=== PATIENT | male | born 1965 | race Caucasian/White ===

== ENCOUNTER 2020-06-13 00:42 | Outpatient (CLI) | payer BC, SELFPAY ==
[2020-06-13 18:24] LABS: SARS-CoV-2 RNA PCR Negative
== END 2020-06-13 00:43 | disposition home or self-care (01) ==
LOC: ANHCOVIDDT 00:42
PROVIDERS: Visit Provider Internal Medicine Critical Care Medicine
DX: Z01.812 Encounter for preprocedural laboratory examination (principal); Z20.828 Contact with and (suspected) exposure to other viral communicable diseases
CPT/HCPCS: 87635; C9803; U0003

== ENCOUNTER 2020-06-15 08:31 | Outpatient (CLI) | payer BC, SELFPAY ==
--- NOTE | 2020-07-07 23:23 | WPDSLEEPSTUD ---
Sleep Study Date of Study: 06/15/20 Ordering Provider: Nayeli Kruse MD Interpreting Physician: Nayeli Kruse MD Sleep Study Type: CPAP Titration Height: 1.7 m Weight: 90.718 kg Body Mass Index: 31.3 Neck Circumference: 40.64 cm Rock: 16 Reason for Sleep Study history of severe TRANG, has used CPAP in the past, wants to start using it again Sleep History Sherman Skaggs is a 54 year-old man who was diagnosed with obstructive sleep apnea 02/05/2011 with a split night study; AHI was 43.8 with minimum saturation of 84%. He was titrated to 15 cm water pressure. He says that he used CPAP for a while however began having cold-like symptoms year round, so he stopped using it. He now has poor quality sleep, and wants to return to using CPAP. he has excessive daytime sleepiness. He has difficulty waking in the morning. He constantly snores and occasionally it is loud enough that others complain about it. He rarely awakens at night with heartburn, belching or coughing. He occasionally awakens from sleep feeling short of breath. He frequently has trouble sleep with a cold. He rarely wakes up gasping for breath at night. He frequently has breathing problems at night observed by others. He rarely sweats excessively at night. He does not notice his heart pounding or beating irregularly at night. He occasionally falls asleep during the day, occasionally involuntarily, rarely while driving. He does not fall asleep during physical effort. He does not have loss of muscle tone was strong emotion. 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 He rarely feels paralyzed on waking or falling asleep. He occasionally has vivid dreamlike scenes upon awakening or falling asleep. He is not afraid to go to sleep. He denies having nightmares. He occasionally remembers his dreams. He frequently has racing thoughts. He rarely feels sad or depressed. He occasionally has anxiety. He occasionally has muscular tension. He rarely notices parts of his body jerking, rarely kicks at night. He occasionally has crawling and aching feelings in his legs and leg pain at night. He does not have morning jaw pain and does not grind his teeth during sleep. He frequently is bothered by pain during the day, is awakened by pain at night, wakes up feeling stiff in the morning with sore muscles and pain in the neck and spine. He has headaches, palpitations, bowel disturbances, dizziness, fatigue, memory problems and concentration difficulties. Normal bedtime is 12 midnight, falling asleep immediately. He wakes up a few times at night that he is aware of but does not stay awake long. When he awakens he may go to the bathroom. He wakes in the morning at 5:00 a.m.. On the weekends he goes to bed at 1:00 a.m. and wakes between 8 and 9:00 a.m. getting recovery sleep. He estimates an average of 5 hours of sleep at night. he takes naps in the afternoon. A short nap is not refreshing. He is usually drowsy in the morning for 3 hours or longer. Habits: He never smoked tobacco. Six caffeinated beverages a day. No alcohol or recreational drugs. FORMERLY [facility] Past Medical History Medical History (Updated 07/07/20 @ 23:34 by Nayeli Kruse MD) Depression Gastroesophageal reflux Hyperlipidemia TRANG (obstructive sleep apnea) Social History Social History (Updated 07/07/20 @ 23:35 by Nayeli Kruse MD) Smoking status: Never smoker Alcohol intake: never Substance use: never Medications Medications: Bupropion SR 150 mg t.i.d.- depression Voltaren 75 mg b.i.d. - carpal tunnel Pepcid b.i.d. Zocor 1 tablet daily gabapentin 1 b.i.d. for leg pain minocycline as needed for acne baby aspirin 81 mg a day multivitamin 1 daily zinc 1 tablet daily Sleep Procedure This test was performed using the [employer] multiple channel system including EOG, EEG, submental EMG, EKG, nasal and oral airflow using thermistors and nasal pressure
[2020-07-07 23:55] VITALS: BMI 31.3
== END 2020-06-15 08:32 | disposition home or self-care (01) ==
LOC: ANHCSM 08:31
PROVIDERS: Visit Provider Internal Medicine Critical Care Medicine
DX: G47.33 Obstructive sleep apnea (adult) (pediatric) (principal)
CPT/HCPCS: 95811

== ENCOUNTER 2020-07-05 13:06 | Outpatient (CLI) | payer OTHER, BC, SELFPAY ==
--- NOTE | ~2020-07-05 | MR_ITS ---
EXAMINATION: MR lumbar spine wo con DATE: 07/05/2020 13:40 INDICATION: Lumbar spinal stenosis. Lumbosacral radiculitis. TECHNIQUE: Magnetic resonance imaging (MRI) of the lumbar spine was performed without intravenous con trast. Sequences included sagittal T2-weighted FSE, sagittal T2-weighted FS FSE, sagittal T1-weighted FSE, and axial T2-weighted FSE. COMPARISON: Lumbar spine MRI 05/12/2016 FINDINGS: There is 15 degrees dextroscoliosis of lumbar spine. There is mild chronic anterior wedging of T12 and L1 vertebral bodies. There is a hemangioma in T12 vertebral body. There is moderately dec reased disc height at L1-L2 and severely decreased disc height from L2-L3 through L5-S1 with endplate remodeling. The distal spinal cord signal intensity is normal. The conus medullaris is at T12-L1. Th e following disc levels are specifically discussed: L1-L2: The disc is bulging. There is mild bilateral facet joint osteoarthritis. There is moderate carina ateral neural foraminal stenosis. There is mild central canal stenosis. L2-L3: The disc is bulging and has an annular fissure. There is moderate bilateral facet joint osteoa rthritis. There is moderate bilateral neural foraminal stenosis. There is mild central canal stenosis . L3-L4: The disc is bulging and has an annular fissure. There is mild right and severe left facet join t osteoarthritis. There is mild right and moderate left neural foraminal stenosis. There is mild cent ral canal stenosis. L4-L5: The disc is bulging and has an annular fissure. There is severe bilateral facet joint osteoart hritis. There is severe bilateral neural foraminal stenosis. There is severe central canal stenosis. L5-S1: The disc is bulging and has an annular fissure. There is moderate bilateral facet joint osteoa rthritis. There is moderate bilateral neural foraminal stenosis. There is mild central canal stenosis . IMPRESSION: 1. Severe lumbar spondylosis, worsened from 05/12/2016. 2. Lumbar dextroscoliosis. Reviewed, dictated and finalized at location B. 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
== END 2020-07-05 13:07 ==
DX: M47.27 Other spondylosis with radiculopathy, lumbosacral region (principal); M48.07 Spinal stenosis, lumbosacral region; M41.9 Scoliosis, unspecified
CPT/HCPCS: 72148

== ENCOUNTER → 2020-11-10 10:16 | Outpatient (CLI) | payer BC, SELFPAY ==
[2020-11-10 19:43] LABS: SARS-CoV-2 RNA PCR Negative
== END ==
PROVIDERS: Visit Provider Internal Medicine Gastroenterology
DX: Z01.812 Encounter for preprocedural laboratory examination (principal); Z20.822 Contact with and (suspected) exposure to COVID-19
CPT/HCPCS: C9803; U0003; U0005

== ENCOUNTER 2020-11-10 11:44 | Outpatient (CLI) | payer BC, SELFPAY ==
--- NOTE | ~2020-11-10 | XR_ITS ---
XR knee LT 3V DATE: 11/10/2020 12:18 INDICATION: Chronic left knee pain for 6 months TECHNIQUE: [place], AP, lateral views COMPARISON: 12/05/2015 left knee FINDINGS: There is prominent loss of medial compartment joint space. There is periarticular spurring at the patellofemoral joint. No fracture or dislocation, periosteal reaction or bone destruction. No radiopaque intra-articular lo ose body or chondrocalcinosis. IMPRESSION: Osteoarthritis at the patellofemoral and medial compartments Reviewed, dictated and finalized at location A.
== END 2020-11-10 11:45 | disposition home or self-care (01) ==
LOC: ANHIMG 11:51
PROVIDERS: PCP Family Medicine
DX: M25.562 Pain in left knee (principal); G89.29 Other chronic pain; M17.12 Unilateral primary osteoarthritis, left knee
CPT/HCPCS: 73562

== ENCOUNTER 2020-11-14 03:11 | Day surgery (SDC) | payer BC, SELFPAY ==
[2020-11-02 10:16] VITALS: BMI 31.4
[2020-11-14 06:29] VITALS: BP 132/75; PULSE 73; RESP 18; TEMP 36.6; O2SAT 98
[2020-11-14] MEDS: LACTATED RINGERS 1,000 ML 150 ML IV CONT (06:38)
--- NOTE | 2020-11-14 06:56 | PM.HPGS ---
History of Present Illness History of Present Illness Consent: Risks, benefits, and alternatives have been discussed and questions answered. Patient agrees to proceed with procedure. Chief complaint: neoplasm screening Narrative: Sherman Skagsg is a 55 year old male Here for colon cancer screening. Review of Systems Review of Systems: All systems reviewed & are unremarkable except as noted in HPI and below PMFSH Past Medical History Medical History Depression Gastroesophageal reflux Hyperlipidemia TRANG (obstructive sleep apnea) Social History Social History Smoking status: Never smoker Alcohol intake: never Substance use: never Living arrangements: with family Gender identity (if verbalized by the patient): Male Spiritual care concerns: No Meds Home Medications and Allergies Home Medications Medication Instructions Recorded Confirmed Type gabapentin 300 mg capsule 300 mg PO TID 08/15/20 11/02/20 History multivitamin 1 tablet PO DAILY 08/15/20 11/02/20 History aspirin 81 mg PO DAILY 11/02/20 11/02/20 History bupropion HCl 150 mg PO TID 11/02/20 11/02/20 History diclofenac sodium 75 mg PO BID 11/02/20 11/02/20 History famotidine 20 mg PO BID 11/02/20 11/02/20 History glucos sul [id number] 1 cap PO DAILY 11/02/20 11/02/20 History [Glucosamine Chondroitin] simvastatin 40 mg PO HS 11/02/20 11/02/20 History vitamin B complex [B 1 tablet PO DAILY 11/02/20 11/02/20 History Complex-Vitamin B12] Allergies Allergy/AdvReac Type Severity Reaction Status Date / Time No Known Allergies Allergy Verified 11/14/20 06:27 Vital Signs Vital Signs - 24 hr 11/14/20 06:29 Temperature 36.6 C Pulse Rate 73 Respiratory Rate 18 Blood Pressure 132/75 Pulse Oximetry 98 Exam Resp: Auscultation: clear to auscultation bilaterally Cardio: Rate: regular rate Rhythm: regular rhythm GI: GI Palp: Yes Soft to palpation and No Tenderness to palpation present (GI) Assessment and Plan Assessment and plan (1) Colon cancer screening: Code(s): Z12.11 - Encounter for screening for malignant neoplasm of colon Status: Acute Assessment and Plan: Colonoscopy with possible biopsy or polypectomy or cautery or injection of substances.
--- NOTE | 2020-11-14 07:12 | WPDANESEPPF ---
Anes - Initial Pre Proc Eval Procedure: Operation Date: 11/14/20 07:30 Proposed Procedures p Screening Colonoscopy - Aroldo Damon MD Date/Time: 11/14/20 07:12 Surgeon: Aroldo Damon MD Pre Op Diagnosis: neoplasm screening Patient Data Age: 55 Gender: M Height: 5 ft 7 in Weight: 94.2 kg Last Vital Signs Temp 97.8 F 11/14/20 06:29 Pulse 73 11/14/20 06:29 Resp 18 11/14/20 06:29 BP 132/75 11/14/20 06:29 Pulse Ox 98 11/14/20 06:29 Allergies Allergy/AdvReac Type Severity Reaction Status Date / Time No Known Allergies Allergy Verified 11/14/20 06:27 Home Medications Medication Instructions Recorded Confirmed Type gabapentin 300 mg capsule 300 mg PO TID 08/15/20 11/02/20 History multivitamin 1 tablet PO DAILY 08/15/20 11/02/20 History aspirin 81 mg PO DAILY 11/02/20 11/02/20 History bupropion HCl 150 mg PO TID 11/02/20 11/02/20 History diclofenac sodium 75 mg PO BID 11/02/20 11/02/20 History famotidine 20 mg PO BID 11/02/20 11/02/20 History glucos sul [id number] 1 cap PO DAILY 11/02/20 11/02/20 History [Glucosamine Chondroitin] simvastatin 40 mg PO HS 11/02/20 11/02/20 History vitamin B complex [B 1 tablet PO DAILY 11/02/20 11/02/20 History Complex-Vitamin B12] Patient hx anesthesia problems: none Family hx anesthesia problems: none PMFSH Past Medical History Medical History Depression Gastroesophageal reflux Hyperlipidemia TRANG (obstructive sleep apnea) Social History Social History Smoking status: Never smoker Alcohol intake: never Substance use: never Living arrangements: with family Gender identity (if verbalized by the patient): Male Spiritual care concerns: No Anes - Eval Final PreProcedure Day of Procedure 11/14/20 07:12 Patient weight: obese Heart: regular rate and rhythm Lungs: clear to auscultation Airway: Mallampati scale class II Neurological: alert and oriented Last oral intake: >/= 8 hours ASA classification: III Emergent: no Anesthetic plan: proceed Anesthesia type and monitoring: general GIVS and standard monitoring Informed Consent: The patient's anesthetic plan and its attendant risks and benefits were discussed with the patient/family/POA. Questions were solicited and answers provided to the satisfaction of the patient/family/POA.
[2020-11-14 07:46] VITALS: BP 94/57; PULSE 77; RESP 21; O2SAT 98
[2020-11-14 07:56] VITALS: BP 105/72; PULSE 74; RESP 20; O2SAT 100
[2020-11-14 08:06] VITALS: BP 98/65; PULSE 76; RESP 18; O2SAT 100
== END 2020-11-14 08:40 | disposition home or self-care (01) ==
PROVIDERS: Visit Provider Internal Medicine Gastroenterology
PROC: 0DJD8ZZ Inspection of Lower Intestinal Tract, Via Natural or Artificial Opening Endoscopic (ICD-10-PCS; CPT 45378; principal; 2020-11-14 07:30)
DX: Z12.11 Encounter for screening for malignant neoplasm of colon (principal); K64.8 Other hemorrhoids; K57.30 Diverticulosis of large intestine without perforation or abscess without bleeding; K21.9 Gastro-esophageal reflux disease without esophagitis; E78.5 Hyperlipidemia, unspecified; G47.33 Obstructive sleep apnea (adult) (pediatric); F32.9 Major depressive disorder, single episode, unspecified; Z79.82 Long term (current) use of aspirin; E66.9 Obesity, unspecified; Z68.32 Body mass index [BMI] 32.0-32.9, adult
CPT/HCPCS: 45378; C9803; J2704; J7120; U0003; U0005

== ENCOUNTER 2021-08-20 12:33 | Outpatient (CLI) | payer BC, SELFPAY ==
--- NOTE | ~2021-08-20 | MR_ITS ---
EXAMINATION: MR shoulder LT wo con DATE: 08/20/2021 13:29 INDICATION: Traumatic complete tear of left rotator cuff. TECHNIQUE: Magnetic resonance imaging (MRI) of the left shoulder was performed without intravenous co ntrast. Sequences included axial PD-weighted FS FSE, coronal oblique PD-weighted FS FSE and T2-weight ed FS FSE, and sagittal oblique T2-weighted FS FSE and T1-weighted FSE. COMPARISON: None. FINDINGS: Coracoacromial arch: The acromion undersurface is curved in morphology (type II). There is severe acromioclavicular joint osteoarthritis. There is mild subacromial/subdeltoid bursitis. Rotator cuff: There is severe supraspinatus tendinopathy. There is a full-thickness tear of supraspinatus tendon me asuring 10 mm anterior to posterior by 2 mm proximal to distal. There is mild infraspinatus tendinopa thy. Teres minor tendon is normal. There is severe subscapularis tendinopathy. There is no asymmetric fatty atrophy of the rotator cuff muscle bellies. Biceps tendon and glenoid labrum: There is a complete tear of proximal biceps tendon. There is a tear of superior labrum from 10:00 to 2:00 (SLAP tear). Fluid: There is a small glenohumeral joint effusion. Bones/cartilage: There is cartilage surface irregularity of humeral head and glenoid. IMPRESSION: 1. Severe rotator cuff tendinopathy with full-thickness tear of supraspinatus tendon. 2. Mild glenohumeral joint chondrosis. SLAP tear. 3. Complete tear of proximal biceps tendon. 4. Severe acromioclavicular joint osteoarthritis. 5. Small glenohumeral joint effusion and mild subacromial/subdeltoid bursitis. Reviewed, dictated and finalized at location A. [employer] IMPRESSION: 1. Severe rotator cuff tendinopathy with full-thickness tear of supraspinatus t endon. 2. Mild glenohumeral joint chondrosis. SLAP tear. 3. Complete tear of proximal biceps tendon. 4. Severe acromioclavicular joint osteoarthritis. 5. Small glenohumeral joint effusion and mild subacromial/subdeltoid bursitis.
== END 2021-08-20 12:34 | disposition home or self-care (01) ==
LOC: ANHIMG 12:42
DX: S46.012S Strain of muscle(s) and tendon(s) of the rotator cuff of left shoulder, sequela (principal); M25.512 Pain in left shoulder; G89.29 Other chronic pain; S46.212S Strain of muscle, fascia and tendon of other parts of biceps, left arm, sequela; S43.432A Superior glenoid labrum lesion of left shoulder, initial encounter; S46.212A Strain of muscle, fascia and tendon of other parts of biceps, left arm, initial encounter; M19.012 Primary osteoarthritis, left shoulder; M25.412 Effusion, left shoulder; M75.52 Bursitis of left shoulder
CPT/HCPCS: 73221

== ENCOUNTER 2023-11-26 05:55 | Observation (INO) | payer BC, SELFPAY ==
[2023-11-26] VITALS (15 sets, daily range): BP systolic 126–170; BP diastolic 86–105; PULSE 73–89; RESP 13–20; TEMP 36.2–36.4; O2SAT 95–100
--- NOTE | ~2023-11-26 | CT_ITS ---
Non-contrast Head CT History: Left-sided numbness and tingling Technique: Axial non-contrast imaging of the brain was performed. Dose reduction technique was used on this scan by utilizing automated exposure control and iterative reconstruction technique. The dose -length product (DLP) was 756.67 mGy-cm. Findings: There is no evidence of intracranial hemorrhage, mass lesion, or acute infarct. Brain par enchyma appears normal. The ventricles and subarachnoid spaces are normal in size. The calvarium ap pears normal. The visualized paranasal sinuses and mastoid air cells are clear. Impression: No significant abnormality seen. Reviewed, dictated and finalized at location . Impression: No significant abnormality seen.
--- NOTE | ~2023-11-26 | CT_ITS ---
CT ANGIOGRAM NECK AND HEAD History: Left-sided numbness and tingling. Technique: Serial spiral axial images through the head and neck were obtained during arterial phase I V injection of 100 cc of Omnipaque 350. 3-D postprocessing and MIP images were then reconstructed on the remote workstation. Dose reduction technique was used on this scan by utilizing automated exposur e control and iterative reconstruction technique. The dose-length product (DLP) was 1217.60 mGy-cm. CTA neck findings: Bilateral vertebral arteries are patent. Bowel, carotid, internal carotid, and ex ternal carotid arteries are patent. No large vessel occlusion or stenosis. No aneurysm. The proximal right internal carotid artery demonstrates 0% stenosis relative to the normal distal artery lumen tyler meter. The proximal left internal carotid artery demonstrates 0% stenosis relative to the normal dist al artery lumen diameter. CTA head findings: Distal vertebral arteries, basilar artery, and posterior cerebral arteries are pat ent. Distal internal carotid arteries, middle cerebral arteries, and anterior cerebral arteries are p atent. No large vessel occlusion or stenosis. No aneurysm. Impression: Unremarkable exam. Reviewed, dictated and finalized at location M. Impression: Unremarkable exam.
--- NOTE | ~2023-11-26 | XR_ITS ---
Portable chest x-ray Comparison: 12/05/2015 Clinical History: Chest pain Findings: Possible minimal central congestive change. No other consolidation or pleural effusion. C ardiomediastinal silhouette is stable. Bones and soft tissues are unremarkable. Impression: Possible minimal central congestive changes. Reviewed, dictated and finalized at location . Impression: Possible minimal central congestive changes.
--- NOTE | ~2023-11-26 | MR_ITS ---
EXAMINATION: MR brain/brain stem wo/w con DATE: 11/26/2023 08:23 CDT INDICATION: CVA. TIA. TECHNIQUE: Magnetic resonance imaging (MRI) of the brain and brainstem was performed without and with 19 cc MultiHance administered intravenously. intravenous contrast. Sequences included sagittal and a xial T1-weighted SE, axial diffusion-weighted FS SE, axial T2*-weighted GRE, axial T2-weighted FLAIR Propeller, and axial T2-weighted Propeller. Apparent diffusion coefficient (ADC) maps were created. COMPARISON: CT brain and CTA brain/carotid dated 11/26/2023 FINDINGS: The brain volume and ventricular system are within normal limits. The brain parenchymal si gnal intensity pattern and durham/white matter is normal and there is no evidence of hemorrhage, space occupying masses or infarctions. The flow signal voids of the major arterial structures about the [place] of [place] and within the kavya r dural venous sinuses appear grossly unremarkable and patent. The seventh and eighth cranial nerve complexes are normal. The mid sagittal image demonstrates a normal craniovertebral junction and renetta us callosum. The paranasal sinuses are grossly unremarkable. No abnormal contrast enhancement was appreciated. IMPRESSION: 1: Unremarkable MRI of the brain. Reviewed, dictated and finalized at location B.
--- NOTE | 2023-11-26 06:02 | ECG_ITS ---
SEE SCANNED COPY FOR CONFIRMED REPORT. MTDD
[2023-11-26 06:03] LABS: Glucose Point of Care 94 mg/dl (65-105)
[2023-11-26 06:37] LABS: Basophils Percent Auto 0.4 % (0.2-1.2); Eosinophils Absolute Auto 0.2 K/mm3 (0-0.3); Eosinophils Percent Auto 3.1 % (0-4.4); Hematocrit 49.1 % (42.0-52.0); Hemoglobin 17.1 g/dL (14.0-18.0); Immature Granulocyte Absolute 0.02 K/mm3 (0.00-0.031); Immature Granulocyte Percent A 0.3 % (0-0.5); Lymphocytes Absolute Auto 2.27 K/mm3 (0.9-3.2); Lymphocytes Percent Auto 31.7 % (18.3-44.2); Mean Corpuscular HGB Conc 34.8 g/dl (32-36); Mean Corpuscular Hemoglobin 31.4 pg (26-34); Mean Corpuscular Volume 90.1 fl (80-100); Mean Platelet Volume 8.8 fl (7.4-10.4); Monocytes Absolute Auto 0.6 K/mm3 (0.1-0.6); Neutrophils Percent Auto 56.5 % (45.5-73.1); Platelet Count Result 277 k/mm3 (150-375); Red Blood Count 5.45 M/mm3 (4.6-6.20); Red Cell Distribution Width 12.3 % (11.5-14.5); White Blood Count 7.2 K/mm3 (4.5-10.0)
[2023-11-26 06:43] LABS: Glucose Point of Care 94 mg/dl (65-105)
[2023-11-26 06:47] LABS: Prothrombin Time 13.6 Seconds (11.1-14.7)
[2023-11-26 06:48] LABS: Partial Thromboplastin Time 32.8 Seconds (22.3-36.8)
--- NOTE | 2023-11-26 06:55 | ED.GENADULT ---
HPI - General Adult General Chief complaint: Neuro Symptoms/Deficit Stated complaint: L sided numbness Time Seen by Provider: 11/26/23 06:55 History of Present Illness HPI narrative: This is a 58-year-old male with a history of HTN, HL, Hypothyroid presenting for left-sided tingling. At 5:00 a.m. while the patient is taking shower he developed pains needles that affected only the left side of his body. He says it felt like a line was drawn down the center and everything on his left side had pins and needle sensation. No associated weakness, double vision dysphagia dysarthria facial due or loss of coordination. This has never happened in the past. Patient is very concerned he is having stroke disease a strong family Prolixin for cardiovascular disease. Related Data Home Medications Medication Instructions Recorded Confirmed gabapentin 300 mg capsule 300 mg PO TID 08/15/20 09/25/23 multivitamin 1 tablet PO DAILY 08/15/20 09/25/23 aspirin 81 mg tablet 81 mg PO DAILY 11/02/20 09/25/23 bupropion HCl 150 mg tablet,12 hr 150 mg PO TID 11/02/20 09/25/23 sustained-release diclofenac sodium 75 mg 75 mg PO BID 11/02/20 09/25/23 tablet,delayed release famotidine 20 mg tablet 20 mg PO BID 11/02/20 09/25/23 glucosamine sulf dipot 1 cap PO DAILY 11/02/20 09/25/23 chlr,msm,chond 550 mg-C 30 mg-salas 1 mg capsule (Glucosamine Chondroitin) vitamin B complex (B 1 tablet PO DAILY 11/02/20 09/25/23 Complex-Vitamin B12 tablet) atorvastatin 40 mg tablet 40 mg PO DAILY 01/07/21 09/25/23 levothyroxine 50 mcg tablet 50 mcg PO 02/24/23 09/25/23 (Synthroid) Allergies Allergy/AdvReac Type Severity Reaction Status Date / Time acetaminophen [From Tylenol] AdvReac Mild Itching Verified 09/25/23 15:39 [facility] Past Medical History Medical History Depression Gastroesophageal reflux Hyperlipidemia TRANG (obstructive sleep apnea) Social History Social History Smoking status: Never smoker Alcohol intake: never Substance use: never Living arrangements: with family Gender identity (if verbalized by the patient): Male Spiritual care concerns: No Exam Narrative: APPEARANCE: No apparent distress. Head: atraumatic. EYES: EOMI, NOSE: Atraumatic NECK: Trachea midline RESPIRATORY: No increased rate of breathing CARDIOVASCULAR: RRR, ABDOMINAL: Non-distended MUSCULOSKELETAl: No obvious deformities NEURO: Alert. Cranial nerves 2-12 grossly intact. Sensation light touch, motor function cerebellar function intact for 4 extremities. Gait exam was normal. SKIN:: Warm, dry. Normal color PSYCHIATRIC: Normal affect NIH Stroke Scale/Score (NIHSS) from [employer] on 11/26/2023 All calculations should be rechecked by clinician prior to use RESULT SUMMARY: 0 points NIH Stroke Scale INPUTS: 1A: Level of consciousness ?> 0 = Alert; keenly responsive 1B: Ask month and age ?> 0 = Both questions right 1C: 'Blink eyes' & 'squeeze hands' ?> 0 = Performs both tasks 2: Horizontal extraocular movements ?> 0 = Normal 3: Visual elizabeth ?> 0 = No visual loss 4: Facial palsy ?> 0 = Normal symmetry 5A: Left arm motor drift ?> 0 = No drift for 10 seconds 5B: Right arm motor drift ?> 0 = No drift for 10 seconds 6A: Left leg motor drift ?> 0 = No drift for 5 seconds 6B: Right leg motor drift ?> 0 = No drift for 5 seconds 7: Limb Ataxia ?> 0 = No ataxia 8: Sensation ?> 0 = Normal; no sensory loss 9: Language/aphasia ?> 0 = Normal; no aphasia 10: Dysarthria ?> 0 = Normal 11: Extinction/inattention ?> 0 = No abnormality Course Vital Signs Vital signs: Vital Signs Pulse Rate 82 11/26/23 06:27 Respiratory Rate 14 11/26/23 06:27 Blood Pressure 126/95 H 11/26/23 06:27 Pulse Oximetry 96 11/26/23 06:27 Oxygen Delivery Room Air 11/26/23 06:27 Pulse Rate 80 11/26/23 06:47 Respiratory Rate 13 11/26/23 06
--- NOTE | 2023-11-26 06:59 | PC.NURSE ---
Patient complained that left sided numbness is coming back.
[2023-11-26 07:01] LABS: Troponin I < 0.012 ng/mL (0.000-0.034)
[2023-11-26 07:13] LABS: Alanine Aminotransferase 76 U/L (6-50); Albumin Level 4.4 g/dL (3.5-5.1); Alkaline Phosphatase 72 U/L (38-126); Anion Gap 6 mmol/L (4-12); Aspartate Amino Transferase 57 U/L (17-59); Bilirubin,Total 0.9 mg/dL (0.2-1.3); Blood Urea Nitrogen 18 mg/dL (9-20); Calcium 9.8 mg/dL (8.4-10.2); Carbon Dioxide 26 mmol/L (22-30); Chloride 106 mmol/L (98-107); Estimated CRCL calculation 71 ml/min; Estimated Glomerular Filt Rate > 60; Glucose 87 mg/dL (65-110); Potassium 4.3 mmol/L (3.4-5.0); Sodium 138 mmol/L (137-145)
[2023-11-26] MEDS: ASPIRIN 81 MG CHEWABLE TABLET 324 MG PO (07:25)
--- NOTE | 2023-11-26 07:41 | PC.NURSE ---
Pt placed in hospital gown with nonslip socks.
--- NOTE | 2023-11-26 07:51 | PC.NURSE ---
Pt off floor at MRI at this time, requested for pt to be taken to [phone] after MRI.
--- NOTE | 2023-11-26 08:07 | PC.NURSE ---
Called MRI to inform them of pts room number changing to [phone].
--- NOTE | 2023-11-26 08:26 | ADMGEN ---
This patient, Sherman Skaggs, was admitted to Medical Room 246-01. Patient/family oriented to hospital policies and general routines including ID bracelet, bed and alarms, visiting hours, pain management, procedures, bathroom and other care routines, personal items, smoking policy, room service/diet, and visiting hours. Information on how to activate the Rapid Response Team has been discussed. Patient/Family are encouraged to report perceived risks to care and to ask questions if they do not understand what they are told or what they should do.
[2023-11-26 08:42] LABS: Free T4 Free Thyroxine Reflex 0.91 ng/dL (0.78-2.19)
--- NOTE | 2023-11-26 09:29 | PM.IMHP ---
H&P: HPI History of Present Illness Date/Time: 11/26/23 09:29 Chief Complaint: left-sided numbness Narrative: patient is 58-year-old male with history of hypertension, hypothyroidism, obesity, sleep apnea comes to the hospital complaining of weakness and left sided numbness. Patient states that the symptoms started about 12 hours ago while he was in the shower when he felt that his left side starting on the face all the way to the leg was numb he could not feel his lips he could not feel his face. Did not have any blurry vision no difficulty hearing or difficulty with speech no difficulty swallowing no upper or lower extremity weakness no nausea vomiting or diarrhea. Never had a stroke like symptoms in the past. Patient has not taken any single high blood pressure does not use sleep apnea machine daily compliance with medications present. Review of Systems Review of Systems: No fevers chills nausea vomiting. No double vision no blurry vision. No difficulty hearing or sinus complaints. No chest pain shortness of breath fever palpitation dizziness ankle swelling. No coughing wheezing chills. No nausea constipation diarrhea abdominal pain reflux. No urgency frequency of urination. No hematuria. No skin rash eczema. No anxiety depression difficulty sleeping. No bleeding gums enlarged glands. No muscle ache back pain joint stiffness. FORMERLY [facility], [facility] Past Medical History Medical History (Updated 11/26/23 @ 09:37 by Guzman Singh MD) Depression Gastroesophageal reflux Hyperlipidemia TRANG (obstructive sleep apnea) Social History Social History Smoking status: Never smoker Alcohol intake: never Substance use: never Substance use type: does not use Do You Feel Safe in your Home?: Yes Lack of Transportation: No Lack of Food: Never True Current Housing: I Have Housing Concerned About Future Housing: No Difficulty Paying Gas/Electric Bills: No Difficulty Paying for Meds: No Currently Unemployed: No Education: Associate Degree Difficulty w/ Childcare or Family Care: No Living arrangements: with family Gender identity (if verbalized by the patient): Male Spiritual care concerns: No Meds Home Medications and Allergies Home Medications Medication Instructions Recorded Confirmed Type gabapentin 300 mg capsule 300 mg PO TID 08/15/20 11/26/23 History multivitamin 1 tablet PO DAILY 08/15/20 11/26/23 History aspirin 81 mg tablet 81 mg PO DAILY 11/02/20 11/26/23 History bupropion HCl 150 mg tablet,12 hr 150 mg PO TID 11/02/20 11/26/23 History sustained-release diclofenac sodium 75 mg 75 mg PO BID 11/02/20 11/26/23 History tablet,delayed release famotidine 20 mg tablet 20 mg PO BID 11/02/20 11/26/23 History glucosamine sulf dipot 1 cap PO DAILY 11/02/20 11/26/23 History chlr,msm,chond 550 mg-C 30 mg-salas 1 mg capsule (Glucosamine Chondroitin) atorvastatin 40 mg tablet 40 mg PO HS 01/07/21 11/26/23 History levothyroxine 50 mcg tablet 50 mcg PO DAILY 02/24/23 11/26/23 History (Synthroid) gentamicin 0.1 % topical ointment See Rx Instructions .Route .COMPLEX 11/26/23 History Allergies Allergy/AdvReac Type Severity Reaction Status Date / Time acetaminophen [From Tylenol] AdvReac Mild Itching Verified 11/26/23 08:34 Vital Signs Vital Signs - 24 hr 11/26/23 06:27 11/26/23 06:35 11/26/23 06:35 Temperature Pulse Rate 82 86 84 Respiratory Rate 14 15 Blood Pressure 126/95 H 131/97 H Pulse Oximetry 96 98 Oxygen Delivery Room Air 11/26/23 06:46 11/26/23 06:47 11/26/23 07:29 Temperature Pulse Rate 81 80 77 Respiratory Rate 13 15 Blood Pressure 135/105 H 166/89 H Pulse Oximetry 100 100 Oxygen Delivery 11/26/23 07:31 11/26/23 08:36 Temperature 36.2 C L Pulse Rate 77 73 Respiratory Rate 20 17 Blood Pressure 147/94 H 170/104 H Pulse Oximetry 100 99 Oxygen Delivery
[2023-11-26 09:51] LABS: Cholesterol 187 mg/dL (0-200); HDL Direct 37 mg/dL; Triglycerides 147 mg/dL (<150)
[2023-11-26 09:58] LABS: Total Triiodothyronine (T3) 2.23 NG/ML (0.97-1.69)
[2023-11-26 10:02] LABS: LDL Cholesterol Direct 123 mg/dL
[2023-11-26 10:13] LABS: Hemoglobin A1C 5.5 % (<5.7)
[2023-11-26] MEDS: FAMOTIDINE 20 MG TABLET PO ×2 (10:49→18:13)
[2023-11-26] MEDS: buPROPion HCL SR (12 HR) 150 MG TAB 300 MG PO (10:50)
[2023-11-26] MEDS: ENOXAPARIN 40 MG/0.4 ML SYRINGE SUB-Q (10:50)
[2023-11-26] MEDS: LOSARTAN POTASSIUM 25 MG TABLET PO (10:50)
--- NOTE | 2023-11-26 12:01 | WPDNEURCNPN ---
Assessment and Plan Assessment and plan (1) TIA (transient ischemic attack): Code(s): G45.9 - Transient cerebral ischemic attack, unspecified Status: Acute (2) HTN (hypertension), malignant: Code(s): I10 - Essential (primary) hypertension Status: Acute (3) Hyperlipidemia: Code(s): E78.5 - Hyperlipidemia, unspecified Status: Acute (4) TRANG (obstructive sleep apnea): Code(s): G47.33 - Obstructive sleep apnea (adult) (pediatric) Status: Acute Plan Mr. Skaggs is a 58 year old male with a history of HTN and HLD presenting with a transient episode of L sided paraesthesias (involving the entire L side). MRI brain was negative for acute stroke. Suspect TIA. ABCD2 score is 4. - Continue aspirin 81mg daily - Recommend Plavix 75mg daily - Increase Lipitor to 80mg daily - Discussed importance of compliance with CPAP - Surface echo with bubble study - concerned about testosterone injections and stroke risk from what she read online-- in most 2020 cohort study published in [facility] there was not an associated increased risk in cardiovascular events such as stroke, and another study published in [place] in 2022 is also supportive of this. However, he is welcome to discontinue it with their PCPs guidance if they have concerns regarding this. Consult date: 11/26/23 Reason for consult: Concern for TIA HPI: Sherman Skaggs is a 58 year old male with a history of HTN, HLD, TRANG, obesity, on testosterone therapy presenting for transient L hemisensory paraesthesias. Patient started having symptoms about 12 hours prior to presentation. He reports paraesthesias in the entire L side of face, trunk, LUE and LLE. He felt he good draw a line down his body. No weakness, vision changes or speech issues. By the time he presented to [place] his symptoms had mostly resolved. NIH was 0. No sensory deficit was noted. BP ranged between 120-130s systolic on presentation, but has been up to 170 systolic during admission. MRI brain was negative for stroke. CTA brain/carotid was negative for stenosis/occlusion. He continues to complain of some paraesthesias only on the L upper face. He has not been compliant with his CPAP for TRANG. He does not smoke. He is not a smoker. He takes testosterone injections on a weekly basis. His LDL is 124 and A1c is 5.5. He takes aspirin 81mg daily and Lipitor 40mg daily. EKG showed sinus rhythm. Echo has not been done yet. Review of Systems Review of Systems: All systems reviewed & are unremarkable except as noted in HPI and below PMFSH Past Medical History Medical History Depression Gastroesophageal reflux Hyperlipidemia TRANG (obstructive sleep apnea) Social History Social History Smoking status: Never smoker Alcohol intake: never Substance use: never Substance use type: does not use Do You Feel Safe in your Home?: Yes Lack of Transportation: No Lack of Food: Never True Current Housing: I Have Housing Concerned About Future Housing: No Difficulty Paying Gas/Electric Bills: No Difficulty Paying for Meds: No Currently Unemployed: No Education: Associate Degree Difficulty w/ Childcare or Family Care: No Living arrangements: with family Gender identity (if verbalized by the patient): Male Spiritual care concerns: No Meds Home Medications and Allergies Home Medications Medication Instructions Recorded Confirmed Type gabapentin 300 mg capsule 300 mg PO TID 08/15/20 11/26/23 History multivitamin 1 tablet PO DAILY 08/15/20 11/26/23 History aspirin 81 mg tablet 81 mg PO DAILY 11/02/20 11/26/23 History bupropion HCl 150 mg tablet,12 hr 150 mg PO TID 11/02/20 11/26/23 History sustained-release diclofenac sodium 75 mg 75 mg PO BID 11/02/20 11/26/23 History tablet,delayed release famotidine 20 mg tablet 20 mg PO BID 11/02/20 11/26/23 History
--- NOTE | 2023-11-26 16:00 | ECHO_ITS ---
Patient Info Name: Sherman Skaggs Age: 58 years : 1965 Gender: Male Ht: 67 in Wt: 215 lbs BSA: 2.18 m2 HR: 85 bpm BP: 129 / 89 mmHg Heart Rhythm: Sinus Rhythm Technical Quality: Good Exam Date: 11/26/2023 3:56 PM Exam Location: Echo Lab Patient Status: Inpatient Admit Date: 11/26/2023 Staff Ordering Physician: Jace Juarez MD Fuel Cell Designer: Emelyn Beal RDCS Attending Provider: Guzman Singh MD Exam Type: CA echo doppler w bubble study Study Info Indications - CVA/TIA Complete two-dimensional, color flow and Doppler transthoracic echocardiogram is performed with agitated saline. Contrast/Agitated Saline Contrast/Ag. Saline: Agitated Saline Amount: 20.00 ml Existing IV Access: Yes Summary 1. Left ventricular hypertrophy with normal contractility and grade 1 diastolic noncompliance. 2. Calcified mitral valve annular. 3. No valve dysfunction. 4. Agitated saline contrast injection negative for shunt. 5. No likely cardioembolic source was identified. Left Ventricle Left ventricular chamber dimension is normal. Left ventricular systolic function is normal, estimated at 65-70%. There is moderate concentric increased left ventricular wall thickness. The left ventricular diastolic function is grade I diastolic dysfunction. Right Ventricle Right ventricular chamber dimension is normal. Left Atria Left atrial chamber dimension is normal. Right Atria Right atrial chamber dimension is normal. Atrial Septum Intact interatrial septum visualized by agitated saline imaging. Aortic Valve The aortic valve is normal. Pulmonic Valve The pulmonic valve is normal. Mitral Valve The mitral valve has normal leaflets. The mitral valve annulus is mildly calcified. Tricuspid Valve The tricuspid valve leaflets are normal. Pericardium/Pleural The pericardium appears normal. Aorta The aortic root size at the sinus of Valsalva is normal. Left Ventricular Outflow Tract Name Value Normal LVOT 2D LVOT Diameter 2.3 cm LVOT Doppler LVOT Peak Gradient 4 mmHg LVOT Mean Gradient 2 mmHg LVOT VTI 17 cm LVOT VTI/AV VTI Ratio 0.8 LVOT Stroke Volume 70 ml LVOT CO 5.5 l/min LVOT CI 2.5 l/min/m2 Pulmonic Valve Name Value Normal RVOT Doppler RVOT Peak Gradient 2 mmHg PV Doppler PV Peak Gradient 4 mmHg Mitral Valve Name Value Normal MV Doppler
[2023-11-26] MEDS: buPROPion HCL SR (12 HR) 150 MG TAB PO (20:36)
[2023-11-26] MEDS: ATORVASTATIN 40 MG TABLET PO (20:36)
[2023-11-27] VITALS: PULSE 103
[2023-11-27 04:00] VITALS: PULSE 79
[2023-11-27 05:38] VITALS: BP 136/78; PULSE 63; RESP 18; TEMP 36.8; O2SAT 100
[2023-11-27] MEDS: LEVOTHYROXINE SODIUM 50 MCG TABLET PO (06:51)
[2023-11-27 08:00] VITALS: PULSE 82
--- NOTE | 2023-11-27 08:13 | PM.IMPN ---
Progress Note: A&P Assessment and Plan (1) Paresthesias: Code(s): R20.2 - Paresthesia of skin Status: Acute (2) Obesity: Qualifiers: Obesity type: due to excess calories Obesity classification: adult class 1 (BMI 30 - 34.9) Code(s): E66.9 - Obesity, unspecified Status: Acute (3) TRANG (obstructive sleep apnea): Code(s): G47.33 - Obstructive sleep apnea (adult) (pediatric) Status: Acute (4) Hyperlipidemia: Code(s): E78.5 - Hyperlipidemia, unspecified Status: Acute (5) HTN (hypertension), malignant: Code(s): I10 - Essential (primary) hypertension Status: Acute Plan 58-year-old male with history of hypertension hyperlipidemia hypothyroidism presented with a left-sided tingling in both upper and lower extremity as well as his face. No associated weakness double vision dysphagia dysarthria loss of coordination. NIH scale was 0 symptoms improving indication for tPA. Admitted for further evaluation. Neurology consulted CT head negative. Head and neck CTA unremarkable. EKG rhythm. Labs unremarkable. LDL 123. MRI brain came back negative for acute stroke. Suspected TIA. Echo pending On aspirin Plavix and Lipitor TRANG on CPAP Obesity Hyperlipidemia Hypertension Prophylaxis Lovenox Code status full code Subjective Date/time seen: 11/27/23 08:13 Interval history: 58-year-old male with history of hypertension hyperlipidemia hypothyroidism presented with a left-sided tingling in both upper and lower extremity as well as his face. No associated weakness double vision dysphagia dysarthria loss of coordination. NIH scale was 0 symptoms improving indication for tPA. Admitted for further evaluation. Neurology consulted CT head negative. Head and neck CTA unremarkable. EKG rhythm. Labs unremarkable. LDL 123. MRI brain came back negative for acute stroke. Suspected TIA. Echo pending On aspirin Plavix and Lipitor TRANG on CPAP Obesity Hyperlipidemia Hypertension Prophylaxis Lovenox Code status full code Review of Systems Review of Systems: All systems reviewed & are unremarkable except as noted in HPI and below Exam Narrative: GENERAL: Well appearing, no acute distress. HEAD: Normocephalic, atraumatic. NECK: Supple. No adenopathy, no masses. RESPIRATORY: respirations nonlabored. , no rales, wheezing. CARDIOVASCULAR: Regular rate and rhythm without murmurs, . Peripheral pulses 2+ and equal bilaterally. ABDOMINAL: Soft, nontender, nondistended, no hepatosplenomegaly. Normoactive BS. MUSCULOSKELETAL: no Epigastric and no hypochondrial tenderness SKIN: Warm, dry, NEURO: A&O X3. Moves all extremities Objective Data Vital Signs Vital Signs: Vital Signs - 24 hr 11/26/23 08:36 11/26/23 09:05 11/26/23 10:29 Temperature 97.2 F L Pulse Rate 73 76 Respiratory Rate 17 Blood Pressure 170/104 H 128/86 Pulse Oximetry 99 11/26/23 12:00 11/26/23 13:55 11/26/23 16:00 Temperature 97.5 F L Pulse Rate 89 81 79 Respiratory Rate 17 Blood Pressure 129/89 Pulse Oximetry 95 11/26/23 19:56 11/26/23 23:49 11/26/23 20:00 Temperature 97.2 F L 97.6 F Pulse Rate 79 79 83 Respiratory Rate 18 18 Blood Pressure 140/93 H 140/95 H Pulse Oximetry 96 97 11/27/23 00:00 11/27/23 04:00 11/27/23 05:38 Temperature 98.3 F Pulse Rate 103 H 79 63 Respiratory Rate 18 Blood Pressure 136/78 Pulse Oximetry 100 Intake/Output Intake/Output: Intake & Output 11/24/23 11/25/23 11/26/23 11/27/23 23:59 23:59 23:59 23:59 Intake Total 1030 350 Balance 1030 350 Meds/Results Medications: Active Medications Generic Name Dose Route Start Last Admin Trade Name Freq PRN Reason Stop Dose Admin Aspirin 81 mg 11/27/23 08:00 Aspirin 81 Mg Chewable Tablet PO DAILY@0800 [facility] Atorvastatin Calcium 40 mg 11/26/23 21:00 11/26/23 20:36 Atorvastatin 40 Mg Tablet PO 40 mg HS [facility] Administrati
[2023-11-27] MEDS: buPROPion HCL SR (12 HR) 150 MG TAB 300 MG PO (08:37)
[2023-11-27] MEDS: FAMOTIDINE 20 MG TABLET PO (08:38)
[2023-11-27] MEDS: ASPIRIN 81 MG CHEWABLE TABLET PO (08:38)
[2023-11-27] MEDS: LOSARTAN POTASSIUM 25 MG TABLET PO (08:38)
[2023-11-27] MEDS: ENOXAPARIN 40 MG/0.4 ML SYRINGE SUB-Q (08:39)
[2023-11-27] MEDS: GENTAMICIN SULFATE 0.1% OINT 15 GM TUBE 1 APPLIC TOPICAL (08:39)
[2023-11-27 08:45] VITALS: O2SAT 97
[2023-11-27 09:13] LABS: Alanine Aminotransferase 63 U/L (6-50); Albumin Level 4.3 g/dL (3.5-5.1); Alkaline Phosphatase 72 U/L (38-126); Anion Gap 1 mmol/L (4-12); Aspartate Amino Transferase 45 U/L (17-59); Bilirubin,Total 0.9 mg/dL (0.2-1.3); Blood Urea Nitrogen 15 mg/dL (9-20); Calcium 9.5 mg/dL (8.4-10.2); Carbon Dioxide 31 mmol/L (22-30); Chloride 104 mmol/L (98-107); Estimated CRCL calculation 65 ml/min; Estimated Glomerular Filt Rate > 60; Glucose 91 mg/dL (65-110); Potassium 4.4 mmol/L (3.4-5.0); Sodium 136 mmol/L (137-145)
--- NOTE | 2023-11-27 09:39 | WPDNEUROPN ---
Progress Note: A&P Assessment and Plan (1) TIA (transient ischemic attack): Code(s): G45.9 - Transient cerebral ischemic attack, unspecified Status: Acute (2) HTN (hypertension), malignant: Code(s): I10 - Essential (primary) hypertension Status: Acute (3) Hyperlipidemia: Code(s): E78.5 - Hyperlipidemia, unspecified Status: Acute (4) TRANG (obstructive sleep apnea): Code(s): G47.33 - Obstructive sleep apnea (adult) (pediatric) Status: Acute Plan Mr. Skaggs is a 58 year old male with a history of HTN and HLD presenting with a transient episode of L sided paraesthesias (involving the entire L side). MRI brain was negative for acute stroke. Suspect TIA. ABCD2 score is 4. - Continue aspirin 81mg daily - Recommend Plavix 75mg daily - Increase Lipitor to 80mg daily - Discussed importance of compliance with CPAP - Surface echo with bubble study -- results pending; if unrevealing send home with 30 day event monitor - concerned about testosterone injections and stroke risk from what she read online-- in most 2020 cohort study published in [facility] there was not an associated increased risk in cardiovascular events such as stroke, and another study published in [place] in 2022 is also supportive of this. I discussed this with patient and his and recommend that they discuss with the ordering provider and weigh risk/benefits before continuing/discontinuing the testosterone. Subjective Date/time seen: 11/27/23 09:39 Interval history: Sherman Skaggs is a 58 year old male with a history of HTN, HLD, TRANG, obesity, on testosterone therapy presenting for transient L hemisensory paraesthesias. Patient started having symptoms about 12 hours prior to presentation. He reported paraesthesias in the entire L side of face, trunk, LUE and LLE. He felt he good draw a line down his body. No weakness, vision changes or speech issues. By the time he presented to [place] his symptoms had mostly resolved. NIH was 0. No sensory deficit was noted. BP ranged between 120-130s systolic on presentation, but has been up to 170 systolic during admission. MRI brain was negative for stroke. CTA brain/carotid was negative for stenosis/occlusion. He is not longer having any symptoms and feels well. He has not been compliant with his CPAP for TRANG. He does not smoke. He is not a smoker. He takes testosterone injections on a weekly basis. His LDL is 124 and A1c is 5.5. He takes aspirin 81mg daily and Lipitor 40mg daily. EKG showed sinus rhythm. Echo has been done but not yet read. Review of Systems Review of Systems: All systems reviewed & are unremarkable except as noted in HPI and below Exam Const: General: comfortable and no acute distress HENMT: Mouth: Yes moist mucous membranes Eyes: Pupils: Equal, round and reactive pupils present EOM: EOMs intact bilaterally Resp: Effort & Inspection: normal respiratory effort Skin: General skin exam: normal color Neuro: Other: Pupils equal and reactive bilaterally, EOMI, face symmetric, No numbness, facial sensation is normal bilaterally, tongue protrudes midline, palate midline. Strength 5/5 throughout. Sensation symmetric in the upper and lower extremities (except for some numbness over the L ram, which is chronic), FNF normal bilaterally. Language comprehension and fluency intact. Gait deferred. Extrem: General: normal to inspection Psych: Mental Status: mental status grossly normal Objective Data Vital Signs Vital Signs: Vital Signs - 24 hr 11/26/23 10:29 11/26/23 12:00 11/26/23 13:55 Temperature 36.4 C L Pulse Rate 89 81 Respiratory Rate 17 Blood Pressure 128/86 129/89 Pulse Oximetry 95 Oxygen Delivery 11/26/23 16:00 11/26/23 19:56 11/26/23 23:49 Temperature 36.2 C L 36.4 C Pulse Rate 79 79 79 Respiratory Rate 18 18 Blood Pressure 140/93 H 140/95 H Pulse Oximetry 96 97 Oxygen Delivery 11/26/23 20:00 11/27/23 00
[2023-11-27 12:00] VITALS: PULSE 93
--- NOTE | 2023-11-27 14:28 | PM.DS ---
DS: Admitting Diagnosis Discharge Date 11/27/2023 Admitting Diagnosis left paresthesia DS: Discharge Diagnosis Discharge Diagnosis (1) Paresthesias: Code(s): R20.2 - Paresthesia of skin Status: Acute (2) Obesity: Qualifiers: Obesity type: due to excess calories Obesity classification: adult class 1 (BMI 30 - 34.9) Code(s): E66.9 - Obesity, unspecified Status: Acute (3) TRANG (obstructive sleep apnea): Code(s): G47.33 - Obstructive sleep apnea (adult) (pediatric) Status: Acute (4) Hyperlipidemia: Code(s): E78.5 - Hyperlipidemia, unspecified Status: Acute (5) HTN (hypertension), malignant: Code(s): I10 - Essential (primary) hypertension Status: Acute DS: Summary Hospital Course Hospital Course: 58-year-old male with history of hypertension hyperlipidemia hypothyroidism presented with a left-sided tingling in both upper and lower extremity as well as his face.? No associated weakness double vision dysphagia dysarthria loss of coordination. NIH scale was 0 symptoms improving indication for tPA.? Admitted for further evaluation. Neurology consulted CT head negative.? Head and neck CTA unremarkable.? EKG rhythm.? Labs unremarkable.? LDL 123. MRI brain came back negative for acute stroke.? Suspected TIA.? Echo unremarkable. Event monitor at discharge. Aspirin Plavix for 3 weeks. Lipitor increased to 80 mg at bedtime TRANG on CPAP Obesity Hyperlipidemia Hypertension Prophylaxis Lovenox Code status full code Time Spent with Patient Time attestation: Total time spent providing and/or coordinating discharge services:35 mins Exam Narrative: GENERAL: Well appearing, no acute distress. HEAD: Normocephalic, atraumatic. NECK: Supple. No adenopathy, no masses. RESPIRATORY: respirations nonlabored. , no rales, wheezing. CARDIOVASCULAR: Regular rate and rhythm without murmurs, . Peripheral pulses 2+ and equal bilaterally. ABDOMINAL: Soft, nontender, nondistended, no hepatosplenomegaly. Normoactive BS. MUSCULOSKELETAL: no Epigastric and no hypochondrial tenderness SKIN: Warm, dry, NEURO: A&O X3. Moves all extremities DS: Data Data Completed and Pending Completed studies during hospitalization: Exam Type: ? ? CA echo doppler w bubble study Study Info Indications ?? ? - CVA/TIA Complete two-dimensional, color flow and Doppler transthoracic echocardiogram is performed with agitated saline. Account #: ? ? [id number] Contrast/Agitated Saline Contrast/Ag. Saline: ? ? Agitated Saline Amount: ? ? 20.00 ml Existing IV Access: ? ? Yes Summary ? 1. Left ventricular hypertrophy with normal contractility and grade 1 diastolic noncompliance. ? 2. Calcified mitral valve annular. ? 3. No valve dysfunction. ? 4. Agitated saline contrast injection negative for shunt. ? 5. No likely cardioembolic source was identified. Left Ventricle ? Left ventricular chamber dimension is normal. ? Left ventricular systolic function is normal, estimated at 65-70%. ? There is moderate concentric increased left ventricular wall thickness. ? The left ventricular diastolic function is grade I diastolic dysfunction. Right Ventricle ? Right ventricular chamber dimension is normal. Left Atria ? Left atrial chamber dimension is normal. Right Atria ? Right atrial chamber dimension is normal. Atrial Septum ? Intact interatrial septum visualized by agitated saline imaging. Aortic Valve ? The aortic valve is normal. Pulmonic Valve ? The pulmonic valve is normal. Mitral Valve ? The mitral valve has normal leaflets. ? The mitral valve annulus is mildly calcified. Tricuspid Valve ? The tricuspid valve leaflets are normal. Pericardium/Pleural ? The pericardium appears normal. Aorta ? The aortic root size at the sinus of Valsalva is normal. Labs on day of discharge: Labs from last 24 hours 11/27/23
--- NOTE | 2023-11-27 15:06 | PC.NURSE ---
pt taken via wheelchair to cardiology office to have event monitor placed per MD discharge order
== END 2023-11-27 15:06 | disposition home or self-care (01) ==
LOC: ANHED 07:22 → ANH2MED 08:32 → ANH3MED 11-30 08:29 → ANH3MEDSUR 11-30 08:29
PROVIDERS: Admitting Provider Internal Medicine; Emergency Provider Emergency Medicine; Visit Provider Internal Medicine
DX: G45.9 Transient cerebral ischemic attack, unspecified (principal); R20.2 Paresthesia of skin; E78.5 Hyperlipidemia, unspecified; I10 Essential (primary) hypertension; G47.33 Obstructive sleep apnea (adult) (pediatric); K21.9 Gastro-esophageal reflux disease without esophagitis; F32.A Depression, unspecified; Z79.82 Long term (current) use of aspirin; E03.9 Hypothyroidism, unspecified; E66.9 Obesity, unspecified; Z68.33 Body mass index [BMI] 33.0-33.9, adult; R29.700 NIHSS score 0; Z79.890 Hormone replacement therapy; Z79.899 Other long term (current) drug therapy
CPT/HCPCS: 36415; 70450; 70496; 70498; 70553; 71045; 80053; 80061; 82948; 83036; 84439; 84443; 84480; 84484; 85025; 85610; 85730; 93005; 93306; 96372; 96375; 99285; A9270; A9577; G0378; J1650; Q9967